=== PATIENT | female | born 1960 | race Caucasian/White ===

== ENCOUNTER 2016-06-10 04:18 | Emergency (ER) | payer OTHER ==
[~2016-06-10] VITALS: Ht 167.6 cm; Wt 95.2 kg
[2016-06-10 05:01] LABS: EOS # 0.1 K/mm3 (0.0-0.50); EOS % 0.9 % (0.0-3.0); LARGE UNSTAINED CELL # 0.1 K/mm3 (0.0-0.4); LARGE UNSTAINED CELL % 0.5 % (0.0-4.0); LYMPH # 0.8 K/mm3 (1.5-4.5); LYMPH % 6.5 % (24.0-44.0); MEAN CORPUSCULAR HEMOGLOBIN 29.5 pg (27.0-33.0); MEAN CORPUSCULAR HGB CONC 33.9 g/dl (32.0-36.5); MEAN CORPUSCULAR VOLUME 86.9 fl (80.0-96.0); MONO # 0.4 K/mm3 (0.0-0.8); MONO % 2.9 % (0.0-5.0); NEUTROPHILS # 10.9 K/mm3 (1.8-7.7); NEUTROPHILS % 89.2 % (36.0-66.0); PLATELET COUNT, AUTOMATED 191 k/mm3 (150-450); RED CELL DISTRIBUTION WIDTH 12.5 % (11.5-14.5); WHITE BLOOD COUNT 12.2 K/mm3 (4.0-10.0)
[2016-06-10] MEDS ORDERED: METOCLOPRAMIDE INJ 10MG/2ML VIAL (J2765) As Ordered ONE (05:01)
[2016-06-10] MEDS ORDERED: HYDROmorphone HCL 1 MG/ML SYRINGE (J1170) As Ordered ONE ×3 (05:02→09:43)
--- NOTE | 2016-06-10 05:10 | REPUSA ---
CLINICAL HISTORY: Abdominal pain. TECHNIQUE: Multiple axial, sagittal and coronal CT images were obtained through the abdomen and pelvi s without administration of oral or IV contrast material. COMMENTS: Surgical changes of the stomach. Mild fullness of the left collecting system. 3 mm calculus in the bladder. Right renal simple cyst. The liver is mildly enlarged without mass or defect. There is no intra or extrahepatic biliary ductal dilatation. The spleen is normal. The gallbladder is within normal limits. The pancreas is of normal contour and attenuation characteristics. There is no evidence of adrenal mass. The kidneys are normal in size, shape and configuration. No renal or ureteral calculi are identified. There is no right hydroureter or hydronephrosis. There is no evidence for appendicitis. There is no bowel wall thickening. No evidence for small or la rge bowel obstruction. There is no evidence of abdominal ascites or lymphadenopathy. There is no evidence of intrinsic or extrinsic bladder mass. There is no pelvic ascites or lymphadeno chase. Prior hysterectomy. Mild diffuse thickening of the wall of the bladder. Images of the lung bases show no evidence of pleural or parenchymal mass. There are no pleural effusi ons. The bony structures are free of lytic or blastic lesions. Multilevel degenerative changes are seen in volving the thoracolumbar spine. Scattered calcifications are seen involving the aorta and major branches compatible with atherosclero sis. IMPRESSION: Suspected recent passage of calculus from the left collecting system into the bladder. This stone is noted in the bladder. Surgical changes of the stomach. Thank you for your kind referral of this patient.
[2016-06-10 05:28] LABS: ALBUMIN 3.7 GM/DL (3.2-5.2); ALBUMIN/GLOBULIN RATIO 1.16 (1.00-1.93); ALKALINE PHOSPHATASE 122 U/L (45-117); ALT/SGPT 170 U/L (12-78); AMYLASE 383 U/L (25-115); ANION GAP 11 MEQ/L (8-16); AST/SGOT 53 U/L (15-37); BILIRUBIN,DIRECT 0.4 MG/DL (0.0-0.2); BILIRUBIN,TOTAL 1.1 MG/DL (0.2-1.0); BLOOD UREA NITROGEN 19 MG/DL (7-18); CALCIUM LEVEL 9.4 MG/DL (8.5-10.1); CARBON DIOXIDE LEVEL 25 MEQ/L (21-32); CHLORIDE LEVEL 108 MEQ/L (98-107); GLOMERULAR FILTRATION RATE > 60.0 (>51); GLUCOSE, FASTING 107 MG/DL (70-105); POTASSIUM SERUM 3.6 MEQ/L (3.5-5.1); SODIUM LEVEL 144 MEQ/L (136-145); TOTAL PROTEIN 6.9 GM/DL (6.4-8.2)
[2016-06-10] MEDS ORDERED: EXCETAB80 PO (06:19)
[2016-06-10] MEDS ORDERED: ROPI1TAB PO (06:19)
[2016-06-10] MEDS ORDERED: OMEP40CA2 PO (06:19)
[2016-06-10] MEDS ORDERED: VITMTA PO (06:19)
[2016-06-10] MEDS ORDERED: ROPI0.5T PO (06:19)
[2016-06-10] MEDS ORDERED: ASPI325T PO (06:19)
[2016-06-10] MEDS ORDERED: KCL 20MEQ IN D5/.45NACL 1000ML As Ordered ONE ×2 (07:16→18:13)
[2016-06-10] MEDS ORDERED: ACETAMINOPHEN 325 MG TAB As Ordered ONE ×2 (13:26→17:46)
[2016-06-10] MEDS ORDERED: rOPINIRole 0.25 MG TAB(REQUIP) PO ONE (16:15)
--- NOTE | 2016-06-10 18:30 | EDDOCDS ---
Nurse's Notes [facility] Name: Laura Bocanegra Age: 55 yrs Sex: Female : 1960 Arrival Date: 06/10/2016 Time: 04:18 Bed OBSERVATION Private MD: Jenifer Sharp A Diagnosis: Acute pancreatitis Presentation: 06/10 04:24 Presenting complaint: Patient states: Thursday I woke up with a bad headache and started js15 vomiting; I also had pain across my back where my kidneys are. Anytime I try to eat I get really bad pain in my stomach. 04:26 Acute neurological deficits are not present. Mechanism of Injury: No Mechanism of js15 Injury. Adult Sepsis Screening: The patient does not have new or worsening altered mentation. Patient's respiratory rate is less than 22. Systolic blood pressure is greater than 100. Patient has a qSOFA score of 0- Negative Sepsis Screen. Suicide/Homicide risk assessment- the patient denies having any suicidal and/or homicidal ideations and does not present with any other emotional, behavioral or mental health complaints. Status: Patient is not a account services specialist or dependent. Transition of care: patient was not received from another setting of care. 04:26 Acuity: ERIKA Level 3 js15 04:26 Method Of Arrival: Wheelchair js15 Triage Assessment: 04:29 General: Appears in no apparent distress, uncomfortable, Behavior is appropriate for js15 age, cooperative. Pain: Location: head, lumbar area, left low back, right low back and abdomen Pain currently is 8 out of 10 on a pain scale. HIV screening NA for this visit Offered previously. Neurological: Level of Consciousness is awake, alert, obeys commands, Oriented to person, place, time. Respiratory: Airway is patent Respiratory effort is even, unlabored, Respiratory pattern is regular, symmetrical. GI: Reports nausea, vomiting. Derm: Skin is pink, warm & dry. Musculoskeletal: Reports pain in back. Historical: - Allergies: No known drug Allergies; - Home Meds: 1. Prilosec 40 mg oral cpDR once daily 2. aspirin 325 mg Oral tab 1 tab once daily 3. ropinirole 1 mg oral tab 1 tab Qam 2 tabs Q pm - PMHx: GERD; restless leg syndrome; - PSHx: gastric sleeve; Hysterectomy; - Social history: Smoking status: Patient states was never smoker of tobacco. No barriers to communication noted, The patient speaks fluent Spanish, Speaks appropriately for age. - Family history: Not pertinent. - : The pt / caregiver states he / she is not on anticoagulants. Home medication list is obtained from the patient. - Exposure Risk Screening:: None identified. Screenin:42 Screening information is obtained from the patient. Fall risk: No risks identified. cf2 Assistance ADL's: requires no assistance with activities of daily living. Abuse/DV Screen: The patient / caregiver reports he/she is: not in a situation that causes fear, pain or injury. Nutritional screening: No deficits noted. Advance Directives: Further advance directive information is declined. home support is adequate. Assessment: 04:42 Adult Sepsis Screening: The patient does not have new or worsening altered mentation. cf2 Patient's respiratory rate is less than 22. Systolic blood pressure is greater than 100. Patient has a qSOFA score of 0- Negative Sepsis Screen. General: Appears uncomfortable, Behavior is appropriate for age, cooperative. Pain: Location: back. Neurological: No deficits noted. EENT: No deficits noted. Cardiovascular: No deficits noted. Respiratory: No deficits noted. GI: No deficits noted. : No deficits noted. Derm: No deficits noted. Musculoskeletal: No deficits noted. Injury Description: No known injury. 06:16 Reassessment: Patient appears in no apparent distress at this time. cf2 07:26 Adult Sepsis Screening: The patient does not have new or worsening altered mentation. mlb1 Patient's respiratory rate is less than 22. Systolic blood pressure is greater than 100. Patient has a qSOFA score of 0- Negative Sepsis Screen. General: Appears in no apparent distress, comfortable, Behavior is appropriate for age, cooperative. Pain: Denies pain. Respiratory: No deficits noted. 08:44 General: Appears in no apparent distress, comfortable, Behavior is appropriate for age, mlb1 cooperative. Pain: Location: low back area Pain currently is 2 out of 10 on a pain scale. Neurological: No deficits noted. Respiratory: No deficits noted. 09:40 General: Appears in no apparent distress, Behavior is appropriate for age, cooperative. mlb1 Pain: Location: lumbar area Pain currently is 6 out of 10 on a pain scale. Neurological: No deficits noted. 10:37 Adult Sepsis Screening: The patient does not have new or worsening altered mentation. mlb1 Patient's respiratory rate is less than 22. Systolic blood pressure is greater than 100. Patient has a qSOFA score of 0- Negative Sepsis Screen. General: Appears in no apparent distress, comfortable, Behavior is appropriate for age, cooperative. Pain: Location: lumbar area Pain currently is 1 out of 10 on a pain scale. Neurological: No deficits noted. Respiratory: No deficits noted. 11:40 General: Appears to be sleeping. Behavior is. Respiratory: Airway is patent Respiratory mlb1 effort is even, unlabored. 12:19 General: Appears in no apparent distress, comfortable, Behavior is appropriate for age, mlb1 cooperative. Pain: Denies pain. Respiratory: No deficits noted. 13:17 General: Appears in no apparent distress, comfortable, Behavior is appropriate for age, mlb1 cooperative. Pain: Location: lumbar area Pain currently is 2 out of 10 on a pain scale. Neurological: No deficits noted. 14:15 General: Appears in no apparent distress, comfortable, Behavior is appropriate for age, mlb1 cooperative. Pain: Denies pain. 15:09 General: Appears in no apparent distress, comfortable, Behavior is appropriate for age, mlb1 cooperative. Pain: Denies pain. Respiratory: No deficits noted. 16:12 General: Appears in no apparent distress, comfortable, Behavior is appropriate for age, mlb1 cooperative. Pain: Denies pain. Neurological: No deficits noted. Respiratory: No deficits noted. 17:11 General: Appears in no apparent distress, comfortable, Behavior is appropriate for age, mlb1 cooperative. Pain: Denies pain. Respiratory: No deficits noted. 17:49 General: Appears in no apparent distress, comfortable, Behavior is cooperative. Pain: mlb1 Location: head Pain currently is 7 out of 10 on a pain scale. Neurological: No deficits noted. 18:25 General: Appears in no apparent distress, comfortable, Behavior is appropriate for age, mlb1 cooperative. Pain: Location: head Pain currently is 5 out of 10 on a pain scale. Neurological: No deficits noted. Respiratory: No deficits noted. Vital Signs: 04:24 BP 116 / 70; Pulse 75; Resp 20; Temp 98.0(TE); Pulse Ox 95% on R/A; Weight 95.25 kg; js15 Height 5 ft. 6 in. (167.64 cm); 07:04 BP 123 / 71; Pulse 80; Resp 16; Temp 98.0; Pulse Ox 100% on R/A; Pain 4/10; cf2 10:37 BP 115 / 70; Pulse 74; Resp 16; Temp 100.3(O); Pulse Ox 93% on R/A; Pain 1/10; mlb1 12:19 Temp 100.4(O); mlb1 13:17 BP 108 / 63; Pulse 82; Resp 16; Temp 100.9(O); Pulse Ox 94% on R/A; Pain 2/10; mlb1 15:10 Temp 99.8(O); mlb1 17:10 BP 125 / 69; Pulse 68; Resp 16; Pulse Ox 96% on R/A; Pain 0/10; mlb1 18:26 BP 153 / 81; Pulse 80; Resp 16; Temp 99.1(O); Pulse Ox 96% on R/A; Pain 5/10; mlb1 04:24 Body Mass Index 33.89 (95.25 kg, 167.64 cm) [facility] Vitals: 04:24 Log In Time: June 10, 2016 at 04:18. [facility] ED Course: 04:19 Patient visited by Osmel Rosales Reg. pm4 04:19 Patient moved to Waiting pm4 04:20 Jenifer Sharp is Private Physician. pm4 04:23 Patient moved to Pre RCE js15 04:26 Triage Initiated js15 04:33 Patient moved to 12 sls1 04:34 Pacheco Burger DO is Attending Physician. cs11 04:34 Patient visited by Pacheco Burger DO. cs11 04:39 Inessa Tabares,RN is Primary Nurse. cf2 04:39 Patient visited by Inessa Tabares,BRYAN. cf2 04:41 Patient visited by Inessa Tabares,BRYAN. cf2 04:42 The patient / caregiver is instructed regarding the plan of care and ED course. Patient cf2 has correct armband on for positive identification. Placed in gown. Bed in low position. Call light in reach. Side rails up X 1. Side rails up X2. Property :Personal belongings accompany Pt. Door closed. Noise minimized. Visitors limited. Lights dimmed. Moved to private room. Verbal reassurance given. Warm blanket given. Pillow given. Head of bed elevated. Diet: Patient is NPO. 04:42 No procedures done that require assistance. cf2 04:55 Lipase Sent. cf2 04:55 Amylase Sent. cf2 04:55 Liver Profile Sent. cf2 04:55 MED Profile Sent. cf2 04:55 CBC with Diff Sent. cf2 04:55 Urine Culture Sent. cf2 04:57 Patient visited by Inessa Tabares RN. cf2 04:59 Patient visited by Inessa Tabares RN. cf2 05:17 Patient visited by Inessa Tabares RN. cf2 05:34 CT ABD & PELVIS: No Contrast Returned. EDMS 05:35 [facility] Payment Agreement was scanned into [employer] and attached to record. hs2 05:55 Patient visited by Inessa Tabares RN. cf2 06:16 Patient visited by Inessa aTbares RN. cf2 06:16 Inserted saline lock: 20 gauge in right antecubital area and blood collected. The cf2 patient tolerated the procedure well. 06:36 Patient moved to OBSERVATION cs11 06:59 Attending Physician role handed off by Pacheco Burger DO sd1 06:59 Ashley Anne MD is Attending Physician. sd1 07:00 Patient visited by Inessa Tabares RN. cf2 07:06 Patient visited by Inessa Tabares RN. cf2 07:27 Patient visited by Bunny Vasquez, BRYAN. mlb1 08:45 Patient visited by Bunny Vasquez, BRYAN. mlb1 09:41 Patient visited by Bunny Vasquez, BRYAN. mlb1 09:55 Urinalysis Sent. mlb1 10:38 Patient visited by Bunny Vasquez, BRYAN. mlb1 12:19 Patient visited by Bunny Vasquez, BRYAN. mlb1 13:17 Patient visited by Bunny Vasquez, BRYAN. mlb1 15:10 Patient visited by Bunny Vasquez, BRYAN. mlb1 16:12 Patient visited by Bunny Vasquez, BRYAN. mlb1 17:11 Patient visited by Bunny Vasquez, BRYAN. mlb1 17:50 Patient visited by Bunny Vasquez, BRYAN. mlb1 Administered Medications: Discontinued: NS 0.9% 1000 ml IV at bolus once Discontinued: Metoclopramide 10 mg IV at 40 mg/hr once over 15 mins 05:05 Drug: NS 0.9% 1000 ml [sodium chloride 0.9 % intravenous solution] Route: IV; Rate: cf2 bolus; Site: left antecubital; 05:05 Drug: Metoclopramide 10 mg [metoclopramide 5 mg/mL injection solution] Route: IV; Rate: cf2 40 mg/hr; Infused Over: 15 mins; Site: left antecubital; 05:05 Drug: Dilaudid - HYDROmorphone 0.5 mg [hydromorphone 1 mg/mL injection syringe (0.5 cf2 mL)] Route: IVP; Site: left antecubital; 07:07 Follow up: Response: No significant change. cf2 06:00 Drug: Dilaudid - HYDROmorphone 0.5 mg [hydromorphone 1 mg/mL injection syringe (0.5 cf2 mL)] Route: IVP; Site: left antecubital; 07:00 Follow up: Response: No Adverse Reaction cf2 06:12 Drug: NS 0.9% 1000 ml [sodium chloride 0.9 % intravenous solution] Route: IV; Rate: cf2 bolus; Site: left antecubital; 07:00 Follow up: Response: No Adverse Reaction cf2 08:44 Drug: D5-1/2 NS with KCl 1000 ml [potassium chloride 20 mEq/L in dextrose 5 %-0.45 % mlb1 sodium chloride IV] {Co-Signature: hs1 (Lulu Arnold RN).} Route: IV; Rate: 100 mL/hr; Site: right antecubital; 18:18 Follow up: IV Status: Completed infusion mlb1 09:47 Drug: Dilaudid - HYDROmorphone 0.5 mg [hydromorphone 1 mg/mL injection syringe (0.5 mlb1 mL)] Route: IVP; Site: right antecubital; 10:37 Follow up: BP 115 / 70; Pulse 74 bpm; Resp 16 bpm; Temp 100.3 Oral; Pulse Ox 93% RA; mlb1 Pain 1/10 Adult; Response: Pain is decreased 13:29 Drug: Acetaminophen 650 mg [acetaminophen 325 mg tablet (2 tabs)] Route: PO; mlb1 15:10 Follow up: Temp 99.8 Oral; Response: Temperature is decreased mlb1 16:40 Drug: Requip 0.5 mg Route: PO; mlb1 17:49 Drug: Acetaminophen 650 mg [acetaminophen 325 mg tablet (2 tabs)] Route: PO; mlb1 18:15 Drug: D5-1/2 NS with KCl 1000 ml [potassium chloride 20 mEq/L in dextrose 5 %-0.45 % mlb1 sodium chloride IV] {Co-Signature: ck1 (Shira Santiago RN).} Route: IV; Rate: 100 mL/hr; Site: right antecubital; Order Results: Lab Order: Urinalysis; SPEC'M 06/10/16 09:53 Test: APPEARANCE, URINE; Value: HAZY; Range: CLEAR; Status: F Test: COLOR, URINE; Value: YELLOW; Range: YELLOW; Status: F Test: PH,URINE; Value: 5.0; Range: 5.0-9.0; Units: UNITS; Status: F Test: SPECIFIC GRAVITY URINE AUTO; Value: 1.024; Range: 1.002-1.035; Status: F Test: PROTEIN, URINE AUTO; Value: 1+; Range: NEGATIVE; Abnormal: Above high normal; Units: mg/dL; Status: F Test: GLUCOSE, URINE (UA) AUTO; Value: NEGATIVE; Range: NEGATIVE; Units: mg/dL; Status: F Test: KETONE, URINE AUTO; Value: 2+; Range: NEGATIVE; Abnormal: Above high normal; Units: mg/dL; Status: F Test: UROBILINOGEN, URINE AUTO; Value: 2.0; Range: 0.0-2.0; Abnormal: Above high normal; Units: mg/dL; Status: F Test: BILIRUBIN, URINE AUTO; Value: NEGATIVE; Range: NEGATIVE; Status: F Test: NITRITE, URINE AUTO; Value: NEGATIVE; Range: NEGATIVE; Status: F Test: LEUKOCYTE ESTERASE, URINE AUTO; Value: NEGATIVE; Range: NEGATIVE; Status: F Test: BLOOD, URINE BLOOD; Value: 2+; Range: NEGATIVE; Abnormal: Above high normal; Status: F Test: WBC, URINE AUTO; Value: 3; Range: 0-3; Units: /HPF; Status: F Test: RBC, URINE AUTO; Value: 3; Range: 0-3; Units: /HPF; Status: F Test: BACTERIA, URINE AUTO; Value: 1+; Range: NEGATIVE; Abnormal: Above high normal; Status: F Test: SQUAMOUS EPITHELIAL CELL UR AU; Value: 1; Range: 0-6; Units: /HPF; Status: F Test: MUCUS, URINE; Value: SMALL; Range: NEGATIVE; Status: F Test: HYALINE CAST, URINE AUTO; Value: 0; Range: 0-1; Units: /LPF; Status: F Lab Order: CBC with Diff; SPEC'M 06/10/16 04:51 Test: WHITE BLOOD COUNT; Value: 12.2; Range: 4.0-10.0; Abnormal: Above high normal; Units: K/mm3; Status: F Test: RED BLOOD COUNT; Value: 5.24; Range: 4.00-5.40; Units: M/mm3; Status: F Test: HEMOGLOBIN; Value: 15.4; Range: 12.0-16.0; Units: g/dl; Status: F Test: HEMATOCRIT; Value: 45.5; Range: 36.0-47.0; Units: %; Status: F Test: MEAN CORPUSCULAR VOLUME; Value: 86.9; Range: 80.0-96.0; Units: fl; Status: F Test: MEAN CORPUSCULAR HEMOGLOBIN; Value: 29.5; Range: 27.0-33.0; Units: pg; Status: F Test: MEAN CORPUSCULAR HGB CONC; Value: 33.9; Range: 32.0-36.5; Units: g/dl; Status: F Test: RED CELL DISTRIBUTION WIDTH; Value: 12.5; Range: 11.5-14.5; Units: %; Status: F Test: PLATELET COUNT, AUTOMATED; Value: 191; Range: 150-450; Units: k/mm3; Status: F Test: NEUTROPHILS %; Value: 89.2; Range: 36.0-66.0; Abnormal: Above high normal; Units: %; Status: F Test: LYMPH %; Value: 6.5; Range: 24.0-44.0; Abnormal: Below low normal; Units: %; Status: F Test: MONO %; Value: 2.9; Range: 0.0-5.0; Units: %; Status: F Test: EOS %; Value: 0.9; Range: 0.0-3.0; Units: %; Status: F Test: BASO %; Value: 0.0; Range: 0.0-1.0; Units: %; Status: F Test: LARGE UNSTAINED CELL %; Value: 0.5; Range: 0.0-4.0; Units: %; Status: F Test: NEUTROPHILS #; Value: 10.9; Range: 1.8-7.7; Abnormal: Above high normal; Units: K/mm3; Status: F Test: LYMPH #; Value: 0.8; Range: 1.5-4.5; Abnormal: Below low normal; Units: K/mm3; Status: F Test: MONO #; Value: 0.4; Range: 0.0-0.8; Units: K/mm3; Status: F Test: EOS #; Value: 0.1; Range: 0.0-0.50; Units: K/mm3; Status: F Test: BASO #; Value: 0.0; Range: 0.0-0.2; Units: K/mm3; Status: F Test: LARGE UNSTAINED CELL #; Value: 0.1; Range: 0.0-0.4; Units: K/mm3; Status: F Lab Order: MED Profile; [facility] 06/10/16 04:51 Test: GLUCOSE, FASTING; Value: 107; Range: 70-105; Abnormal: Above high normal; Units: MG/DL; Status: F Test: BLOOD UREA NITROGEN; Value: 19; Range: 7-18; Abnormal: Above high normal; Units: MG/DL; Status: F Test: CREATININE FOR GFR; Value: 0.70; Range: 0.55-1.02; Units: MG/DL; Status: F Test: GLOMERULAR FILTRATION RATE; Value: > 60.0; Range: >51; Status: F Test: SODIUM LEVEL; Value: 144; Range: 136-145; Units: MEQ/L; Status: F Test: POTASSIUM SERUM; Value: 3.6; Range: 3.5-5.1; Units: MEQ/L; Status: F Test: CHLORIDE LEVEL; Value: 108; Range: 98-107; Abnormal: Above high normal; Units: MEQ/L; Status: F Test: CARBON DIOXIDE LEVEL; Value: 25; Range: 21-32; Units: MEQ/L; Status: F Test: ANION GAP; Value: 11; Range: 8-16; Units: MEQ/L; Status: F Test: CALCIUM LEVEL; Value: 9.4; Range: 8.5-10.1; Units: MG/DL; Status: F Test Note: ; Units are mL/min/1.73 m2 Chronic Kidney Disease Staging per NKF: Stage I & II GFR >=60 Normal to Mildly Decreased Stage III GFR 30-59 Moderately Decreased Stage IV GFR 15-29 Severely Decreased Stage V GFR <15 Very Little GFR Left ESRD GFR <15 on DOCUMENT REVIEW SPECIALIST Lab Order: Liver Profile; SPEC06/10/16 04:51 Test: AST/SGOT; Value: 53; Range: 15-37; Abnormal: Above high normal; Units: U/L; Status: F Test: ALT/SGPT; Value: 170; Range: 12-78; Abnormal: Above high normal; Units: U/L; Status: F Test: ALKALINE PHOSPHATASE; Value: 122; Range: 45-117; Abnormal: Above high normal; Units: U/L; Status: F Test: BILIRUBIN,TOTAL; Value: 1.1; Range: 0.2-1.0; Abnormal: Above high normal; Units: MG/DL; Status: F Test: BILIRUBIN,DIRECT; Value: 0.4; Range: 0.0-0.2; Abnormal: Above high normal; Units: MG/DL; Status: F Test: TOTAL PROTEIN; Value: 6.9; Range: 6.4-8.2; Units: GM/DL; Status: F Test: ALBUMIN; Value: 3.7; Range: 3.2-5.2; Units: GM/DL; Status: F Test: ALBUMIN/GLOBULIN RATIO; Value: 1.16; Range: 1.00-1.93; Status: F Lab Order: Amylase; 06/10/16 04:51 Test: AMYLASE; Value: 383; Range: 25-115; Abnormal: Above high normal; Units: U/L; Status: F Lab Order: Lipase; 06/10/16 04:51 Test: LIPASE; Value: 1000; Range: 73-393; Abnormal: Above high normal; Units: U/L; Status: F Radiology Order: CT ABD & PELVIS: No Contrast Test: CT ABD & PELVIS: No Contrast REASON FOR EXAMINATION: Renal colic; ; CLINICAL HISTORY: Abdominal pain.; TECHNIQUE: Multiple axial, sagittal and coronal CT images were obtained through the abdomen and pelvi; s without administration of oral or IV contrast material.; COMMENTS:; Surgical changes of the stomach.; Mild fullness of the left collecting system.; 3 mm calculus in the bladder.; Right renal simple cyst.; The liver is mildly enlarged without mass or defect. There is no intra or extrahepatic biliary ductal; dilatation. The spleen is normal. The gallbladder is within normal limits. The pancreas is of normal; contour and attenuation characteristics. There is no evidence of adrenal mass.; The kidneys are normal in size, shape and configuration. No renal or ureteral calculi are identified.; There is no right hydroureter or hydronephrosis.; There is no evidence for appendicitis. There is no bowel wall thickening. No evidence for small or la; rge bowel obstruction. There is no evidence of abdominal ascites or lymphadenopathy.; There is no evidence of intrinsic or extrinsic bladder mass. There is no pelvic ascites or lymphadeno; chase.; Prior hysterectomy. Mild diffuse thickening of the wall of the bladder.; Images of the lung bases show no evidence of pleural or parenchymal mass. There are no pleural effusi; ons.; The bony structures are free of lytic or blastic lesions. Multilevel degenerative changes are seen in; volving the thoracolumbar spine.; Scattered calcifications are seen involving the aorta and major branches compatible with atherosclero; sis.; IMPRESSION:; Suspected recent passage of calculus from the left collecting system into the bladder. This stone is; noted in the bladder.; Surgical changes of the stomach.; Thank you for your kind referral of this patient.; ; Outcome: 06:16 CT Study completed. cf2 09:54 ER care complete, transfer ordered by Provider. sd1 16:26 ER care complete, transfer ordered by Provider. sd1 18:03 [facility] to accompanying personnel [email or web address] Jeff Seaman; Esther Mora. 18:26 Discharge Assessment: Patient awake, alert and oriented x 3. No cognitive and/or mlb1 functional deficits noted. Patient verbalized understanding of disposition instructions. patient administered narcotics - yes. Patient was admitted to the hospital or transferred to another facility. The following High Risk Discharge criteria are identified: None. Transferred to [facility]. Transfer form completed. x-rays sent w/ patient. 18:27 Condition: stable. b1 18:29 Patient left the ED. [facility] Signatures: Dispatcher [employer] EDGA Ashley Anne MD MD sd1 Bunny Vasquez RN RN mlb1 Shira Santiago,RN RN ck1 Clotilde Bajwa RN RN sls1 Pacheco Burger, DO DO cs11 Angelique HernandezRN RN js15 Beatriz Huynh, Reg Reg hs2 Inessa Tabares,RN RN cf2 Osmel Rosales, Reg Reg pm4 Lulu Arnold RN hs1 Shira Santiago RN ck1 Corrections: (The following items were deleted from the chart) 15:54 04:29 Home Meds: ropinirole oral oral three times a day; js15 [facility] 16:12 15:54 Home Meds: ropinirole oral 10 mg oral 1 tab Q am 2 tabs Q pm; b1 [facility] MTDD
--- NOTE | 2016-06-10 18:30 | EDDOCDS ---
Physician Documentation [facility] Name: Laura Bocanegra Age: 55 yrs Sex: Female : 1960 Arrival Date: 06/10/2016 Time: 04:18 Bed OBSERVATION Private MD: Jenifer Sharp A Disposition: 06/10/16 16:26 Transfer ordered to Other. Diagnosis is Acute pancreatitis. - Reason for transfer: Higher level of care. - Accepting physician is Dr. Lawrence. - Condition is Stable. - Problem is new. - Symptoms are unchanged. Historical: - Allergies: No known drug Allergies; - Home Meds: 1. Prilosec 40 mg oral cpDR once daily 2. aspirin 325 mg Oral tab 1 tab once daily 3. ropinirole 1 mg oral tab 1 tab Qam 2 tabs Q pm - PMHx: GERD; restless leg syndrome; - PSHx: gastric sleeve; Hysterectomy; - Social history: Smoking status: Patient states was never smoker of tobacco. No barriers to communication noted, The patient speaks fluent Indonesian, Speaks appropriately for age. - Family history: Not pertinent. - : The pt / caregiver states he / she is not on anticoagulants. Home medication list is obtained from the patient. - Exposure Risk Screening:: None identified. Vital Signs: 06/10 04:24 BP 116 / 70; Pulse 75; Resp 20; Temp 98.0(TE); Pulse Ox 95% on R/A; Weight 95.25 kg / js15 209.99 lbs; Height 5 ft. 6 in. (167.64 cm); 07:04 BP 123 / 71; Pulse 80; Resp 16; Temp 98.0; Pulse Ox 100% on R/A; Pain 4/10; cf2 10:37 BP 115 / 70; Pulse 74; Resp 16; Temp 100.3(O); Pulse Ox 93% on R/A; Pain 1/10; mlb1 12:19 Temp 100.4(O); mlb1 13:17 BP 108 / 63; Pulse 82; Resp 16; Temp 100.9(O); Pulse Ox 94% on R/A; Pain 2/10; mlb1 15:10 Temp 99.8(O); mlb1 17:10 BP 125 / 69; Pulse 68; Resp 16; Pulse Ox 96% on R/A; Pain 0/10; mlb1 18:26 BP 153 / 81; Pulse 80; Resp 16; Temp 99.1(O); Pulse Ox 96% on R/A; Pain 5/10; mlb1 04:24 Body Mass Index 33.89 (95.25 kg, 167.64 cm) js15 MDM: 04:36 Urinalysis Ordered. EDMS 04:36 Urine Culture Ordered. EDMS 04:37 CBC with Diff Ordered. EDMS 04:37 MED Profile Ordered. EDMS 04:37 Liver Profile Ordered. EDMS 04:37 Amylase Ordered. EDMS 04:37 Lipase Ordered. EDMS 04:37 CT ABD & PELVIS: No Contrast Ordered. EDMS 04:56 NS 0.9% 1000 ml IV at bolus once ordered. cs11 04:59 Metoclopramide 10 mg IV at 40 mg/hr once over 15 mins ordered. cs11 04:59 Dilaudid - HYDROmorphone 0.5 mg IVP once ordered. cs11 05:20 CBC with Diff Reviewed. cs11 05:34 Financial registration complete. hs2 05:35 [facility] Payment Agreement was scanned into [employer] and attached to record. hs2 05:41 MED Profile Reviewed. cs11 05:41 Liver Profile Reviewed. cs11 05:41 Amylase Reviewed. cs11 05:41 Lipase Reviewed. cs11 05:41 CT ABD & PELVIS: No Contrast Reviewed. cs11 05:46 BED REQUEST+ADM ordered. EDMS 05:53 Dilaudid - HYDROmorphone 0.5 mg IVP once ordered. cs11 06:11 NS 0.9% 1000 ml IV at bolus once ordered. cs11 07:12 D5-1/2 NS with KCl 20 mEq/L 1000 ml IV at 100 mL/hr once ordered. sd1 09:42 Dilaudid - HYDROmorphone 0.5 mg IVP once ordered. sd1 13:23 Acetaminophen Tablet 650 mg PO once ordered. sd1 14:54 Urinalysis Reviewed. sd1 15:21 CBC with Diff Ordered. EDMS 15:22 MED Profile Ordered. EDMS 15:22 Liver Profile Ordered. EDMS 15:22 Lipase Ordered. EDMS 16:04 Requip 0.5 mg PO once ordered. sd1 17:39 Acetaminophen Tablet 650 mg PO once ordered. sd1 18:12 D5-1/2 NS with KCl 20 mEq/L 1000 ml IV at 100 mL/hr once ordered. mlb1 Administered Medications: Discontinued: NS 0.9% 1000 ml IV at bolus once Discontinued: Metoclopramide 10 mg IV at 40 mg/hr once over 15 mins 05:05 Drug: NS 0.9% 1000 ml [sodium chloride 0.9 % intravenous solution] Route: IV; Rate: cf2 bolus; Site: left antecubital; 05:05 Drug: Metoclopramide 10 mg [metoclopramide 5 mg/mL injection solution] Route: IV; Rate: cf2 40 mg/hr; Infused Over: 15 mins; Site: left antecubital; 05:05 Drug: Dilaudid - HYDROmorphone 0.5 mg [hydromorphone 1 mg/mL injection syringe (0.5 cf2 mL)] Route: IVP; Site: left antecubital; 07:07 Follow up: Response: No significant change. cf2 06:00 Drug: Dilaudid - HYDROmorphone 0.5 mg [hydromorphone 1 mg/mL injection syringe (0.5 cf2 mL)] Route: IVP; Site: left antecubital; 07:00 Follow up: Response: No Adverse Reaction cf2 06:12 Drug: NS 0.9% 1000 ml [sodium chloride 0.9 % intravenous solution] Route: IV; Rate: cf2 bolus; Site: left antecubital; 07:00 Follow up: Response: No Adverse Reaction cf2 08:44 Drug: D5-1/2 NS with KCl 1000 ml [potassium chloride 20 mEq/L in dextrose 5 %-0.45 % mlb1 sodium chloride IV] {Co-Signature: hs1 (Lulu Arnold RN).} Route: IV; Rate: 100 mL/hr; Site: right antecubital; 18:18 Follow up: IV Status: Completed infusion mlb1 09:47 Drug: Dilaudid - HYDROmorphone 0.5 mg [hydromorphone 1 mg/mL injection syringe (0.5 mlb1 mL)] Route: IVP; Site: right antecubital; 10:37 Follow up: BP 115 / 70; Pulse 74 bpm; Resp 16 bpm; Temp 100.3 Oral; Pulse Ox 93% RA; mlb1 Pain 05/27 Adult; Response: Pain is decreased 13:29 Drug: Acetaminophen 650 mg [acetaminophen 325 mg tablet (2 tabs)] Route: PO; b1 15:10 Follow up: Temp 99.8 Oral; Response: Temperature is decreased mlb1 16:40 Drug: Requip 0.5 mg Route: PO; mlb1 17:49 Drug: Acetaminophen 650 mg [acetaminophen 325 mg tablet (2 tabs)] Route: PO; mlb1 18:15 Drug: D5-1/2 NS with KCl 1000 ml [potassium chloride 20 mEq/L in dextrose 5 %-0.45 % mlb1 sodium chloride IV] {Co-Signature: ck1 (Shira Santiago RN).} Route: IV; Rate: 100 mL/hr; Site: right antecubital; Signatures: Dispatcher [employer] EDAshley Garcia MD MD sd1 Bunny Vasquez RN RN mlb1 Pacheco Burger DO DO cs11 Angelique HernandezRN RN js15 Beatriz Huynh, Reg Reg hs2 Inessa Tabares RN RN cf2 Lulu Arnold RN hs1 Shira Santiago RN ck1 The chart was reviewed and I authenticate all verbal orders and agree with the evaluation and treatment provided.Corrections: (The following items were deleted from the chart) 15:54 04:29 Home Meds: ropinirole oral oral three times a day; js15 mlb1 16:12 15:54 Home Meds: ropinirole oral 10 mg oral 1 tab Q am 2 tabs Q pm; mlb1 mlb1 Attachments: 05:35 [facility] Payment Agreement hs2 MTDD
--- NOTE | 2016-06-12 19:29 | EDDOCDS ---
Physician Documentation [facility] Name: Laura Bocanegra Age: 55 yrs Sex: Female : 1960 Arrival Date: 06/10/2016 Time: 04:18 Bed OBSERVATION Private MD: Jenifer Sharp A Disposition: 06/10/16 16:26 Transfer ordered to Other. Diagnosis is Acute pancreatitis. - Reason for transfer: Higher level of care. - Accepting physician is Dr. Lawrence. - Condition is Stable. - Problem is new. - Symptoms are unchanged. Historical: - Allergies: No known drug Allergies; - Home Meds: 1. Prilosec 40 mg oral cpDR once daily 2. aspirin 325 mg Oral tab 1 tab once daily 3. ropinirole 1 mg oral tab 1 tab Qam 2 tabs Q pm - PMHx: GERD; restless leg syndrome; - PSHx: gastric sleeve; Hysterectomy; - Social history: Smoking status: Patient states was never smoker of tobacco. No barriers to communication noted, The patient speaks fluent Uzbek, Speaks appropriately for age. - Family history: Not pertinent. - : The pt / caregiver states he / she is not on anticoagulants. Home medication list is obtained from the patient. - Exposure Risk Screening:: None identified. Vital Signs: 06/10 04:24 BP 116 / 70; Pulse 75; Resp 20; Temp 98.0(TE); Pulse Ox 95% on R/A; Weight 95.25 kg / js15 209.99 lbs; Height 5 ft. 6 in. (167.64 cm); 07:04 BP 123 / 71; Pulse 80; Resp 16; Temp 98.0; Pulse Ox 100% on R/A; Pain 4/10; cf2 10:37 BP 115 / 70; Pulse 74; Resp 16; Temp 100.3(O); Pulse Ox 93% on R/A; Pain 1/10; mlb1 12:19 Temp 100.4(O); mlb1 13:17 BP 108 / 63; Pulse 82; Resp 16; Temp 100.9(O); Pulse Ox 94% on R/A; Pain 2/10; mlb1 15:10 Temp 99.8(O); mlb1 17:10 BP 125 / 69; Pulse 68; Resp 16; Pulse Ox 96% on R/A; Pain 0/10; mlb1 18:26 BP 153 / 81; Pulse 80; Resp 16; Temp 99.1(O); Pulse Ox 96% on R/A; Pain 5/10; mlb1 04:24 Body Mass Index 33.89 (95.25 kg, 167.64 cm) js15 MDM: 04:36 Urinalysis Ordered. EDMS 04:36 Urine Culture Ordered. EDMS 04:37 CBC with Diff Ordered. EDMS 04:37 MED Profile Ordered. EDMS 04:37 Liver Profile Ordered. EDMS 04:37 Amylase Ordered. EDMS 04:37 Lipase Ordered. EDMS 04:37 CT ABD & PELVIS: No Contrast Ordered. EDMS 04:56 NS 0.9% 1000 ml IV at bolus once ordered. cs11 04:59 Metoclopramide 10 mg IV at 40 mg/hr once over 15 mins ordered. cs11 04:59 Dilaudid - HYDROmorphone 0.5 mg IVP once ordered. cs11 05:20 CBC with Diff Reviewed. cs11 05:34 Financial registration complete. hs2 05:35 [facility] Payment Agreement was scanned into [employer] and attached to record. hs2 05:41 MED Profile Reviewed. cs11 05:41 Liver Profile Reviewed. cs11 05:41 Amylase Reviewed. cs11 05:41 Lipase Reviewed. cs11 05:41 CT ABD & PELVIS: No Contrast Reviewed. cs11 05:46 BED REQUEST+ADM ordered. EDMS 05:53 Dilaudid - HYDROmorphone 0.5 mg IVP once ordered. cs11 06:11 NS 0.9% 1000 ml IV at bolus once ordered. cs11 07:12 D5-1/2 NS with KCl 20 mEq/L 1000 ml IV at 100 mL/hr once ordered. sd1 09:42 Dilaudid - HYDROmorphone 0.5 mg IVP once ordered. sd1 13:23 Acetaminophen Tablet 650 mg PO once ordered. sd1 14:54 Urinalysis Reviewed. sd1 15:21 CBC with Diff Ordered. EDMS 15:22 MED Profile Ordered. EDMS 15:22 Liver Profile Ordered. EDMS 15:22 Lipase Ordered. EDMS 16:04 Requip 0.5 mg PO once ordered. sd1 17:39 Acetaminophen Tablet 650 mg PO once ordered. sd1 18:12 D5-1/2 NS with KCl 20 mEq/L 1000 ml IV at 100 mL/hr once ordered. mlb1 06/11 09:59 T-Sheet-- Draft Copy was scanned into [employer] and attached to record. gb Administered Medications: Discontinued: NS 0.9% 1000 ml IV at bolus once Discontinued: Metoclopramide 10 mg IV at 40 mg/hr once over 15 mins 06/10 05:05 Drug: NS 0.9% 1000 ml [sodium chloride 0.9 % intravenous solution] Route: IV; Rate: cf2 bolus; Site: left antecubital; 05:05 Drug: Metoclopramide 10 mg [metoclopramide 5 mg/mL injection solution] Route: IV; Rate: cf2 40 mg/hr; Infused Over: 15 mins; Site: left antecubital; 05:05 Drug: Dilaudid - HYDROmorphone 0.5 mg [hydromorphone 1 mg/mL injection syringe (0.5 cf2 mL)] Route: IVP; Site: left antecubital; 07:07 Follow up: Response: No significant change. cf2 06:00 Drug: Dilaudid - HYDROmorphone 0.5 mg [hydromorphone 1 mg/mL injection syringe (0.5 cf2 mL)] Route: IVP; Site: left antecubital; 07:00 Follow up: Response: No Adverse Reaction cf2 06:12 Drug: NS 0.9% 1000 ml [sodium chloride 0.9 % intravenous solution] Route: IV; Rate: cf2 bolus; Site: left antecubital; 07:00 Follow up: Response: No Adverse Reaction cf2 08:44 Drug: D5-1/2 NS with KCl 1000 ml [potassium chloride 20 mEq/L in dextrose 5 %-0.45 % mlb1 sodium chloride IV] {Co-Signature: hs1 (Lulu Arnold RN).} Route: IV; Rate: 100 mL/hr; Site: right antecubital; 18:18 Follow up: IV Status: Completed infusion mlb1 09:47 Drug: Dilaudid - HYDROmorphone 0.5 mg [hydromorphone 1 mg/mL injection syringe (0.5 mlb1 mL)] Route: IVP; Site: right antecubital; 10:37 Follow up: BP 115 / 70; Pulse 74 bpm; Resp 16 bpm; Temp 100.3 Oral; Pulse Ox 93% RA; mlb1 Pain /10 Adult; Response: Pain is decreased 13:29 Drug: Acetaminophen 650 mg [acetaminophen 325 mg tablet (2 tabs)] Route: PO; mlb1 15:10 Follow up: Temp 99.8 Oral; Response: Temperature is decreased mlb1 16:40 Drug: Requip 0.5 mg Route: PO; mlb1 17:49 Drug: Acetaminophen 650 mg [acetaminophen 325 mg tablet (2 tabs)] Route: PO; mlb1 18:15 Drug: D5-1/2 NS with KCl 1000 ml [potassium chloride 20 mEq/L in dextrose 5 %-0.45 % mlb1 sodium chloride IV] {Co-Signature: ck1 (Shira Santiago RN).} Route: IV; Rate: 100 mL/hr; Site: right antecubital; Signatures: Dispatcher [employer] EDAshley Garcia MD MD sd1 Briana Chua, Reg Reg gb Bunny Vasquez RN RN mlb1 Pacheco Burger, DO cs11 Angelique HernandezRN RN js15 Beatriz Huynh, Reg Reg hs2 Inessa TabaresRN RN cf2 Lulu Arnold RN hs1 Shira Santiago RN ck1 The chart was reviewed and I authenticate all verbal orders and agree with the evaluation and treatment provided.Corrections: (The following items were deleted from the chart) 15:54 04:29 Home Meds: ropinirole oral oral three times a day; js15 [facility] 16:12 15:54 Home Meds: ropinirole oral 10 mg oral 1 tab Q am 2 tabs Q pm; mlb1 mlb1 Attachments: 05:35 [facility] Payment Agreement hs2 06/11 09:59 T-Sheet-- Draft Copy gb Chart Complete MTDD
--- NOTE | 2016-06-12 19:29 | EDDOCDS ---
Nurse's Notes [facility] Name: Laura Bocanegra Age: 55 yrs Sex: Female : 1960 Arrival Date: 06/10/2016 Time: 04:18 Bed OBSERVATION Private MD: Jenifer Sharp A Diagnosis: Acute pancreatitis Presentation: 06/10 04:24 Presenting complaint: Patient states: Thursday I woke up with a bad headache and started js15 vomiting; I also had pain across my back where my kidneys are. Anytime I try to eat I get really bad pain in my stomach. 04:26 Acute neurological deficits are not present. Mechanism of Injury: No Mechanism of js15 Injury. Adult Sepsis Screening: The patient does not have new or worsening altered mentation. Patient's respiratory rate is less than 22. Systolic blood pressure is greater than 100. Patient has a qSOFA score of 0- Negative Sepsis Screen. Suicide/Homicide risk assessment- the patient denies having any suicidal and/or homicidal ideations and does not present with any other emotional, behavioral or mental health complaints. Status: Patient is not a b2b managed service sales exec or dependent. Transition of care: patient was not received from another setting of care. 04:26 Acuity: ERIKA Level 3 js15 04:26 Method Of Arrival: Wheelchair js15 Triage Assessment: 04:29 General: Appears in no apparent distress, uncomfortable, Behavior is appropriate for js15 age, cooperative. Pain: Location: head, lumbar area, left low back, right low back and abdomen Pain currently is 8 out of 10 on a pain scale. HIV screening NA for this visit Offered previously. Neurological: Level of Consciousness is awake, alert, obeys commands, Oriented to person, place, time. Respiratory: Airway is patent Respiratory effort is even, unlabored, Respiratory pattern is regular, symmetrical. GI: Reports nausea, vomiting. Derm: Skin is pink, warm & dry. Musculoskeletal: Reports pain in back. Historical: - Allergies: No known drug Allergies; - Home Meds: 1. Prilosec 40 mg oral cpDR once daily 2. aspirin 325 mg Oral tab 1 tab once daily 3. ropinirole 1 mg oral tab 1 tab Qam 2 tabs Q pm - PMHx: GERD; restless leg syndrome; - PSHx: gastric sleeve; Hysterectomy; - Social history: Smoking status: Patient states was never smoker of tobacco. No barriers to communication noted, The patient speaks fluent Occitan, Speaks appropriately for age. - Family history: Not pertinent. - : The pt / caregiver states he / she is not on anticoagulants. Home medication list is obtained from the patient. - Exposure Risk Screening:: None identified. Screenin:42 Screening information is obtained from the patient. Fall risk: No risks identified. cf2 Assistance ADL's: requires no assistance with activities of daily living. Abuse/DV Screen: The patient / caregiver reports he/she is: not in a situation that causes fear, pain or injury. Nutritional screening: No deficits noted. Advance Directives: Further advance directive information is declined. home support is adequate. Assessment: 04:42 Adult Sepsis Screening: The patient does not have new or worsening altered mentation. cf2 Patient's respiratory rate is less than 22. Systolic blood pressure is greater than 100. Patient has a qSOFA score of 0- Negative Sepsis Screen. General: Appears uncomfortable, Behavior is appropriate for age, cooperative. Pain: Location: back. Neurological: No deficits noted. EENT: No deficits noted. Cardiovascular: No deficits noted. Respiratory: No deficits noted. GI: No deficits noted. : No deficits noted. Derm: No deficits noted. Musculoskeletal: No deficits noted. Injury Description: No known injury. 06:16 Reassessment: Patient appears in no apparent distress at this time. cf2 07:26 Adult Sepsis Screening: The patient does not have new or worsening altered mentation. mlb1 Patient's respiratory rate is less than 22. Systolic blood pressure is greater than 100. Patient has a qSOFA score of 0- Negative Sepsis Screen. General: Appears in no apparent distress, comfortable, Behavior is appropriate for age, cooperative. Pain: Denies pain. Respiratory: No deficits noted. 08:44 General: Appears in no apparent distress, comfortable, Behavior is appropriate for age, mlb1 cooperative. Pain: Location: low back area Pain currently is 2 out of 10 on a pain scale. Neurological: No deficits noted. Respiratory: No deficits noted. 09:40 General: Appears in no apparent distress, Behavior is appropriate for age, cooperative. mlb1 Pain: Location: lumbar area Pain currently is 6 out of 10 on a pain scale. Neurological: No deficits noted. 10:37 Adult Sepsis Screening: The patient does not have new or worsening altered mentation. mlb1 Patient's respiratory rate is less than 22. Systolic blood pressure is greater than 100. Patient has a qSOFA score of 0- Negative Sepsis Screen. General: Appears in no apparent distress, comfortable, Behavior is appropriate for age, cooperative. Pain: Location: lumbar area Pain currently is 1 out of 10 on a pain scale. Neurological: No deficits noted. Respiratory: No deficits noted. 11:40 General: Appears to be sleeping. Behavior is. Respiratory: Airway is patent Respiratory mlb1 effort is even, unlabored. 12:19 General: Appears in no apparent distress, comfortable, Behavior is appropriate for age, mlb1 cooperative. Pain: Denies pain. Respiratory: No deficits noted. 13:17 General: Appears in no apparent distress, comfortable, Behavior is appropriate for age, mlb1 cooperative. Pain: Location: lumbar area Pain currently is 2 out of 10 on a pain scale. Neurological: No deficits noted. 14:15 General: Appears in no apparent distress, comfortable, Behavior is appropriate for age, mlb1 cooperative. Pain: Denies pain. 15:09 General: Appears in no apparent distress, comfortable, Behavior is appropriate for age, mlb1 cooperative. Pain: Denies pain. Respiratory: No deficits noted. 16:12 General: Appears in no apparent distress, comfortable, Behavior is appropriate for age, mlb1 cooperative. Pain: Denies pain. Neurological: No deficits noted. Respiratory: No deficits noted. 17:11 General: Appears in no apparent distress, comfortable, Behavior is appropriate for age, mlb1 cooperative. Pain: Denies pain. Respiratory: No deficits noted. 17:49 General: Appears in no apparent distress, comfortable, Behavior is cooperative. Pain: mlb1 Location: head Pain currently is 7 out of 10 on a pain scale. Neurological: No deficits noted. 18:25 General: Appears in no apparent distress, comfortable, Behavior is appropriate for age, mlb1 cooperative. Pain: Location: head Pain currently is 5 out of 10 on a pain scale. Neurological: No deficits noted. Respiratory: No deficits noted. Vital Signs: 04:24 BP 116 / 70; Pulse 75; Resp 20; Temp 98.0(TE); Pulse Ox 95% on R/A; Weight 95.25 kg; js15 Height 5 ft. 6 in. (167.64 cm); 07:04 BP 123 / 71; Pulse 80; Resp 16; Temp 98.0; Pulse Ox 100% on R/A; Pain 4/10; cf2 10:37 BP 115 / 70; Pulse 74; Resp 16; Temp 100.3(O); Pulse Ox 93% on R/A; Pain 1/10; mlb1 12:19 Temp 100.4(O); mlb1 13:17 BP 108 / 63; Pulse 82; Resp 16; Temp 100.9(O); Pulse Ox 94% on R/A; Pain 2/10; mlb1 15:10 Temp 99.8(O); mlb1 17:10 BP 125 / 69; Pulse 68; Resp 16; Pulse Ox 96% on R/A; Pain 0/10; mlb1 18:26 BP 153 / 81; Pulse 80; Resp 16; Temp 99.1(O); Pulse Ox 96% on R/A; Pain 5/10; mlb1 04:24 Body Mass Index 33.89 (95.25 kg, 167.64 cm) [facility] Vitals: 04:24 Log In Time: June 10, 2016 at 04:18. [facility] ED Course: 04:19 Patient visited by Osmel Rosales Reg. pm4 04:19 Patient moved to Waiting pm4 04:20 Jenifer Sharp is Private Physician. pm4 04:23 Patient moved to Pre RCE js15 04:26 Triage Initiated js15 04:33 Patient moved to 12 sls1 04:34 Pacheco Burger DO is Attending Physician. cs11 04:34 Patient visited by Pacheco Burger DO. cs11 04:39 Inessa Tabares,RN is Primary Nurse. cf2 04:39 Patient visited by Inessa Tabares,BRYAN. cf2 04:41 Patient visited by Inessa Tabares,BRYAN. cf2 04:42 The patient / caregiver is instructed regarding the plan of care and ED course. Patient cf2 has correct armband on for positive identification. Placed in gown. Bed in low position. Call light in reach. Side rails up X 1. Side rails up X2. Property :Personal belongings accompany Pt. Door closed. Noise minimized. Visitors limited. Lights dimmed. Moved to private room. Verbal reassurance given. Warm blanket given. Pillow given. Head of bed elevated. Diet: Patient is NPO. 04:42 No procedures done that require assistance. cf2 04:55 Lipase Sent. cf2 04:55 Amylase Sent. cf2 04:55 Liver Profile Sent. cf2 04:55 MED Profile Sent. cf2 04:55 CBC with Diff Sent. cf2 04:55 Urine Culture Sent. cf2 04:57 Patient visited by Inessa Tabares RN. cf2 04:59 Patient visited by Inessa Tabares RN. cf2 05:17 Patient visited by Inessa Tabares RN. cf2 05:34 CT ABD & PELVIS: No Contrast Returned. EDMS 05:35 [facility] Payment Agreement was scanned into [employer] and attached to record. hs2 05:55 Patient visited by Inessa Tabares RN. cf2 06:16 Patient visited by Inessa Tabares RN. cf2 06:16 Inserted saline lock: 20 gauge in right antecubital area and blood collected. The cf2 patient tolerated the procedure well. 06:36 Patient moved to OBSERVATION cs11 06:59 Attending Physician role handed off by Pacheco Burger DO sd1 06:59 Ashley Anne MD is Attending Physician. sd1 07:00 Patient visited by Inessa Tabares RN. cf2 07:06 Patient visited by Inessa Tabares RN. cf2 07:27 Patient visited by Bunny Vasquez, BRYAN. mlb1 08:45 Patient visited by Bunny Vasquez, BRYAN. mlb1 09:41 Patient visited by Bunny Vasquez, BRYAN. mlb1 09:55 Urinalysis Sent. mlb1 10:38 Patient visited by Bunny Vasquez, BRYAN. mlb1 12:19 Patient visited by Bunny Vasquez, RN. mlb1 13:17 Patient visited by Bunny Vasquez, RN. mlb1 15:10 Patient visited by Bunny Vasquez, BRYAN. mlb1 16:12 Patient visited by Bunny Vasquez, BRYAN. mlb1 17:11 Patient visited by Bunny Vasquez, BRYAN. mlb1 17:50 Patient visited by Bunny Vasquez, RN. mlb1 06/11 09:59 T-Sheet-- Draft Copy was scanned into [employer] and attached to record. gb Administered Medications: Discontinued: NS 0.9% 1000 ml IV at bolus once Discontinued: Metoclopramide 10 mg IV at 40 mg/hr once over 15 mins 06/10 05:05 Drug: NS 0.9% 1000 ml [sodium chloride 0.9 % intravenous solution] Route: IV; Rate: cf2 bolus; Site: left antecubital; 05:05 Drug: Metoclopramide 10 mg [metoclopramide 5 mg/mL injection solution] Route: IV; Rate: cf2 40 mg/hr; Infused Over: 15 mins; Site: left antecubital; 05:05 Drug: Dilaudid - HYDROmorphone 0.5 mg [hydromorphone 1 mg/mL injection syringe (0.5 cf2 mL)] Route: IVP; Site: left antecubital; 07:07 Follow up: Response: No significant change. cf2 06:00 Drug: Dilaudid - HYDROmorphone 0.5 mg [hydromorphone 1 mg/mL injection syringe (0.5 cf2 mL)] Route: IVP; Site: left antecubital; 07:00 Follow up: Response: No Adverse Reaction cf2 06:12 Drug: NS 0.9% 1000 ml [sodium chloride 0.9 % intravenous solution] Route: IV; Rate: cf2 bolus; Site: left antecubital; 07:00 Follow up: Response: No Adverse Reaction cf2 08:44 Drug: D5-1/2 NS with KCl 1000 ml [potassium chloride 20 mEq/L in dextrose 5 %-0.45 % mlb1 sodium chloride IV] {Co-Signature: hs1 (Lulu Arnold RN).} Route: IV; Rate: 100 mL/hr; Site: right antecubital; 18:18 Follow up: IV Status: Completed infusion mlb1 09:47 Drug: Dilaudid - HYDROmorphone 0.5 mg [hydromorphone 1 mg/mL injection syringe (0.5 mlb1 mL)] Route: IVP; Site: right antecubital; 10:37 Follow up: BP 115 / 70; Pulse 74 bpm; Resp 16 bpm; Temp 100.3 Oral; Pulse Ox 93% RA; mlb1 Pain 05/27 Adult; Response: Pain is decreased 13:29 Drug: Acetaminophen 650 mg [acetaminophen 325 mg tablet (2 tabs)] Route: PO; mlb1 15:10 Follow up: Temp 99.8 Oral; Response: Temperature is decreased mlb1 16:40 Drug: Requip 0.5 mg Route: PO; mlb1 17:49 Drug: Acetaminophen 650 mg [acetaminophen 325 mg tablet (2 tabs)] Route: PO; mlb1 18:15 Drug: D5-1/2 NS with KCl 1000 ml [potassium chloride 20 mEq/L in dextrose 5 %-0.45 % mlb1 sodium chloride IV] {Co-Signature: ck1 (Shira Santiago RN).} Route: IV; Rate: 100 mL/hr; Site: right antecubital; Order Results: Lab Order: Urinalysis; SPEC'M 06/10/16 09:53 Test: APPEARANCE, URINE; Value: HAZY; Range: CLEAR; Status: F Test: COLOR, URINE; Value: YELLOW; Range: YELLOW; Status: F Test: PH,URINE; Value: 5.0; Range: 5.0-9.0; Units: UNITS; Status: F Test: SPECIFIC GRAVITY URINE AUTO; Value: 1.024; Range: 1.002-1.035; Status: F Test: PROTEIN, URINE AUTO; Value: 1+; Range: NEGATIVE; Abnormal: Above high normal; Units: mg/dL; Status: F Test: GLUCOSE, URINE (UA) AUTO; Value: NEGATIVE; Range: NEGATIVE; Units: mg/dL; Status: F Test: KETONE, URINE AUTO; Value: 2+; Range: NEGATIVE; Abnormal: Above high normal; Units: mg/dL; Status: F Test: UROBILINOGEN, URINE AUTO; Value: 2.0; Range: 0.0-2.0; Abnormal: Above high normal; Units: mg/dL; Status: F Test: BILIRUBIN, URINE AUTO; Value: NEGATIVE; Range: NEGATIVE; Status: F Test: NITRITE, URINE AUTO; Value: NEGATIVE; Range: NEGATIVE; Status: F Test: LEUKOCYTE ESTERASE, URINE AUTO; Value: NEGATIVE; Range: NEGATIVE; Status: F Test: BLOOD, URINE BLOOD; Value: 2+; Range: NEGATIVE; Abnormal: Above high normal; Status: F Test: WBC, URINE AUTO; Value: 3; Range: 0-3; Units: /HPF; Status: F Test: RBC, URINE AUTO; Value: 3; Range: 0-3; Units: /HPF; Status: F Test: BACTERIA, URINE AUTO; Value: 1+; Range: NEGATIVE; Abnormal: Above high normal; Status: F Test: SQUAMOUS EPITHELIAL CELL UR AU; Value: 1; Range: 0-6; Units: /HPF; Status: F Test: MUCUS, URINE; Value: SMALL; Range: NEGATIVE; Status: F Test: HYALINE CAST, URINE AUTO; Value: 0; Range: 0-1; Units: /LPF; Status: F Lab Order: Urine Culture; SPEC'M 06/10/16 04:51 Test: URINE CULTURE; Value: <EXTERNAL COMMENT eCWMed> FULL REPORT IN LAB NOTES (eCW and [employer]).; Status: F Test: URINE CULTURE; Value: URINE CULTURE RESULT NO GROWTH; Status: F Lab Order: CBC with Diff; SPEC'M 06/10/16 04:51 Test: WHITE BLOOD COUNT; Value: 12.2; Range: 4.0-10.0; Abnormal: Above high normal; Units: K/mm3; Status: F Test: RED BLOOD COUNT; Value: 5.24; Range: 4.00-5.40; Units: M/mm3; Status: F Test: HEMOGLOBIN; Value: 15.4; Range: 12.0-16.0; Units: g/dl; Status: F Test: HEMATOCRIT; Value: 45.5; Range: 36.0-47.0; Units: %; Status: F Test: MEAN CORPUSCULAR VOLUME; Value: 86.9; Range: 80.0-96.0; Units: fl; Status: F Test: MEAN CORPUSCULAR HEMOGLOBIN; Value: 29.5; Range: 27.0-33.0; Units: pg; Status: F Test: MEAN CORPUSCULAR HGB CONC; Value: 33.9; Range: 32.0-36.5; Units: g/dl; Status: F Test: RED CELL DISTRIBUTION WIDTH; Value: 12.5; Range: 11.5-14.5; Units: %; Status: F Test: PLATELET COUNT, AUTOMATED; Value: 191; Range: 150-450; Units: k/mm3; Status: F Test: NEUTROPHILS %; Value: 89.2; Range: 36.0-66.0; Abnormal: Above high normal; Units: %; Status: F Test: LYMPH %; Value: 6.5; Range: 24.0-44.0; Abnormal: Below low normal; Units: %; Status: F Test: MONO %; Value: 2.9; Range: 0.0-5.0; Units: %; Status: F Test: EOS %; Value: 0.9; Range: 0.0-3.0; Units: %; Status: F Test: BASO %; Value: 0.0; Range: 0.0-1.0; Units: %; Status: F Test: LARGE UNSTAINED CELL %; Value: 0.5; Range: 0.0-4.0; Units: %; Status: F Test: NEUTROPHILS #; Value: 10.9; Range: 1.8-7.7; Abnormal: Above high normal; Units: K/mm3; Status: F Test: LYMPH #; Value: 0.8; Range: 1.5-4.5; Abnormal: Below low normal; Units: K/mm3; Status: F Test: MONO #; Value: 0.4; Range: 0.0-0.8; Units: K/mm3; Status: F Test: EOS #; Value: 0.1; Range: 0.0-0.50; Units: K/mm3; Status: F Test: BASO #; Value: 0.0; Range: 0.0-0.2; Units: K/mm3; Status: F Test: LARGE UNSTAINED CELL #; Value: 0.1; Range: 0.0-0.4; Units: K/mm3; Status: F Lab Order: MED Profile; SPEC'M 06/10/16 04:51 Test: GLUCOSE, FASTING; Value: 107; Range: 70-105; Abnormal: Above high normal; Units: MG/DL; Status: F Test: BLOOD UREA NITROGEN; Value: 19; Range: 7-18; Abnormal: Above high normal; Units: MG/DL; Status: F Test: CREATININE FOR GFR; Value: 0.70; Range: 0.55-1.02; Units: MG/DL; Status: F Test: GLOMERULAR FILTRATION RATE; Value: > 60.0; Range: >51; Status: F Test: SODIUM LEVEL; Value: 144; Range: 136-145; Units: MEQ/L; Status: F Test: POTASSIUM SERUM; Value: 3.6; Range: 3.5-5.1; Units: MEQ/L; Status: F Test: CHLORIDE LEVEL; Value: 108; Range: 98-107; Abnormal: Above high normal; Units: MEQ/L; Status: F Test: CARBON DIOXIDE LEVEL; Value: 25; Range: 21-32; Units: MEQ/L; Status: F Test: ANION GAP; Value: 11; Range: 8-16; Units: MEQ/L; Status: F Test: CALCIUM LEVEL; Value: 9.4; Range: 8.5-10.1; Units: MG/DL; Status: F Test Note: ; Units are mL/min/1.73 m2 Chronic Kidney Disease Staging per NKF: Stage I & II GFR >=60 Normal to Mildly Decreased Stage III GFR 30-59 Moderately Decreased Stage IV GFR 15-29 Severely Decreased Stage V GFR <15 Very Little GFR Left ESRD GFR <15 [address] Lab Order: Liver Profile; SPEC'M 06/10/16 04:51 Test: AST/SGOT; Value: 53; Range: 15-37; Abnormal: Above high normal; Units: U/L; Status: F Test: ALT/SGPT; Value: 170; Range: 12-78; Abnormal: Above high normal; Units: U/L; Status: F Test: ALKALINE PHOSPHATASE; Value: 122; Range: 45-117; Abnormal: Above high normal; Units: U/L; Status: F Test: BILIRUBIN,TOTAL; Value: 1.1; Range: 0.2-1.0; Abnormal: Above high normal; Units: MG/DL; Status: F Test: BILIRUBIN,DIRECT; Value: 0.4; Range: 0.0-0.2; Abnormal: Above high normal; Units: MG/DL; Status: F Test: TOTAL PROTEIN; Value: 6.9; Range: 6.4-8.2; Units: GM/DL; Status: F Test: ALBUMIN; Value: 3.7; Range: 3.2-5.2; Units: GM/DL; Status: F Test: ALBUMIN/GLOBULIN RATIO; Value: 1.16; Range: 1.00-1.93; Status: F Lab Order: Amylase; SPEC'M 06/10/16 04:51 Test: AMYLASE; Value: 383; Range: 25-115; Abnormal: Above high normal; Units: U/L; Status: F Lab Order: Lipase; SPEC'M 06/10/16 04:51 Test: LIPASE; Value: 1000; Range: 73-393; Abnormal: Above high normal; Units: U/L; Status: F Radiology Order: CT ABD & PELVIS: No Contrast Test: CT ABD & PELVIS: No Contrast REASON FOR EXAMINATION: Renal colic; ; CLINICAL HISTORY: Abdominal pain.; TECHNIQUE: Multiple axial, sagittal and coronal CT images were obtained through the abdomen and pelvi; s without administration of oral or IV contrast material.; COMMENTS:; Surgical changes of the stomach.; Mild fullness of the left collecting system.; 3 mm calculus in the bladder.; Right renal simple cyst.; The liver is mildly enlarged without mass or defect. There is no intra or extrahepatic biliary ductal; dilatation. The spleen is normal. The gallbladder is within normal limits. The pancreas is of normal; contour and attenuation characteristics. There is no evidence of adrenal mass.; The kidneys are normal in size, shape and configuration. No renal or ureteral calculi are identified.; There is no right hydroureter or hydronephrosis.; There is no evidence for appendicitis. There is no bowel wall thickening. No evidence for small or la; rge bowel obstruction. There is no evidence of abdominal ascites or lymphadenopathy.; There is no evidence of intrinsic or extrinsic bladder mass. There is no pelvic ascites or lymphadeno; chase.; Prior hysterectomy. Mild diffuse thickening of the wall of the bladder.; Images of the lung bases show no evidence of pleural or parenchymal mass. There are no pleural effusi; ons.; The bony structures are free of lytic or blastic lesions. Multilevel degenerative changes are seen in; volving the thoracolumbar spine.; Scattered calcifications are seen involving the aorta and major branches compatible with atherosclero; sis.; IMPRESSION:; Suspected recent passage of calculus from the left collecting system into the bladder. This stone is; noted in the bladder.; Surgical changes of the stomach.; Thank you for your kind referral of this patient.; ; Outcome: 06:16 CT Study completed. cf2 09:54 ER care complete, transfer ordered by Provider. sd1 16:26 ER care complete, transfer ordered by Provider. sd1 18:03 Transferred by EMS ground [facility] ambulance report to accompanying personnel Seven ck1 Jeff Cloth Bleaching Range Operator Chief; Esther Mora. 18:26 Discharge Assessment: Patient awake, alert and oriented x 3. No cognitive and/or mlb1 functional deficits noted. Patient verbalized understanding of disposition instructions. patient administered narcotics - yes. Patient was admitted to the hospital or transferred to another facility. The following High Risk Discharge criteria are identified: None. Transferred to [facility]. Transfer form completed. x-rays sent w/ patient. 18:27 Condition: stable. mlb1 18:29 Patient left the ED. [facility] Signatures: Dispatcher [employer] EDMS Ashley Anne MD MD sd1 Briana Chau, Reg Reg gb Bunny Vasquez RN RN mlb1 Jack,Shira,RN RN ck1 Clotilde Bajwa RN RN sls1 Pacheco Burger, DO DO cs11 Angelique HernandezRN RN js15 Beatriz Huynh, Reg Reg hs2 Inessa TabaresRN RN cf2 Osmel Rosales, Reg Reg pm4 Lulu Arnold RN hs1 Shira Santiago RN ck1 Corrections: (The following items were deleted from the chart) 15:54 04:29 Home Meds: ropinirole oral oral three times a day; js15 ml 16:12 15:54 Home Meds: ropinirole oral 10 mg oral 1 tab Q am 2 tabs Q pm; mlb1 b1 [facility]
--- NOTE | 2016-06-12 19:29 | EDDOCDS ---
Physician Documentation [facility] Name: Laura Bocanegra Age: 55 yrs Sex: Female : 1960 Arrival Date: 06/10/2016 Time: 04:18 Bed OBSERVATION Private MD: Jenifer Sharp A Disposition: 06/10/16 16:26 Transfer ordered to Other. Diagnosis is Acute pancreatitis. - Reason for transfer: Higher level of care. - Accepting physician is Dr. Lawrence. - Condition is Stable. - Problem is new. - Symptoms are unchanged. Historical: - Allergies: No known drug Allergies; - Home Meds: 1. Prilosec 40 mg oral cpDR once daily 2. aspirin 325 mg Oral tab 1 tab once daily 3. ropinirole 1 mg oral tab 1 tab Qam 2 tabs Q pm - PMHx: GERD; restless leg syndrome; - PSHx: gastric sleeve; Hysterectomy; - Social history: Smoking status: Patient states was never smoker of tobacco. No barriers to communication noted, The patient speaks fluent Swedish, Speaks appropriately for age. - Family history: Not pertinent. - : The pt / caregiver states he / she is not on anticoagulants. Home medication list is obtained from the patient. - Exposure Risk Screening:: None identified. Vital Signs: 06/10 04:24 BP 116 / 70; Pulse 75; Resp 20; Temp 98.0(TE); Pulse Ox 95% on R/A; Weight 95.25 kg / js15 209.99 lbs; Height 5 ft. 6 in. (167.64 cm); 07:04 BP 123 / 71; Pulse 80; Resp 16; Temp 98.0; Pulse Ox 100% on R/A; Pain 4/10; cf2 10:37 BP 115 / 70; Pulse 74; Resp 16; Temp 100.3(O); Pulse Ox 93% on R/A; Pain 1/10; mlb1 12:19 Temp 100.4(O); mlb1 13:17 BP 108 / 63; Pulse 82; Resp 16; Temp 100.9(O); Pulse Ox 94% on R/A; Pain 2/10; mlb1 15:10 Temp 99.8(O); mlb1 17:10 BP 125 / 69; Pulse 68; Resp 16; Pulse Ox 96% on R/A; Pain 0/10; mlb1 18:26 BP 153 / 81; Pulse 80; Resp 16; Temp 99.1(O); Pulse Ox 96% on R/A; Pain 5/10; mlb1 04:24 Body Mass Index 33.89 (95.25 kg, 167.64 cm) js15 MDM: 04:36 Urinalysis Ordered. EDMS 04:36 Urine Culture Ordered. EDMS 04:37 CBC with Diff Ordered. EDMS 04:37 MED Profile Ordered. EDMS 04:37 Liver Profile Ordered. EDMS 04:37 Amylase Ordered. EDMS 04:37 Lipase Ordered. EDMS 04:37 CT ABD & PELVIS: No Contrast Ordered. EDMS 04:56 NS 0.9% 1000 ml IV at bolus once ordered. cs11 04:59 Metoclopramide 10 mg IV at 40 mg/hr once over 15 mins ordered. cs11 04:59 Dilaudid - HYDROmorphone 0.5 mg IVP once ordered. cs11 05:20 CBC with Diff Reviewed. cs11 05:34 Financial registration complete. hs2 05:35 [facility] Payment Agreement was scanned into [employer] and attached to record. hs2 05:41 MED Profile Reviewed. cs11 05:41 Liver Profile Reviewed. cs11 05:41 Amylase Reviewed. cs11 05:41 Lipase Reviewed. cs11 05:41 CT ABD & PELVIS: No Contrast Reviewed. cs11 05:46 BED REQUEST+ADM ordered. EDMS 05:53 Dilaudid - HYDROmorphone 0.5 mg IVP once ordered. cs11 06:11 NS 0.9% 1000 ml IV at bolus once ordered. cs11 07:12 D5-1/2 NS with KCl 20 mEq/L 1000 ml IV at 100 mL/hr once ordered. sd1 09:42 Dilaudid - HYDROmorphone 0.5 mg IVP once ordered. sd1 13:23 Acetaminophen Tablet 650 mg PO once ordered. sd1 14:54 Urinalysis Reviewed. sd1 15:21 CBC with Diff Ordered. EDMS 15:22 MED Profile Ordered. EDMS 15:22 Liver Profile Ordered. EDMS 15:22 Lipase Ordered. EDMS 16:04 Requip 0.5 mg PO once ordered. sd1 17:39 Acetaminophen Tablet 650 mg PO once ordered. sd1 18:12 D5-1/2 NS with KCl 20 mEq/L 1000 ml IV at 100 mL/hr once ordered. mlb1 06/11 09:59 T-Sheet-- Draft Copy was scanned into [employer] and attached to record. gb Administered Medications: Discontinued: NS 0.9% 1000 ml IV at bolus once Discontinued: Metoclopramide 10 mg IV at 40 mg/hr once over 15 mins 06/10 05:05 Drug: NS 0.9% 1000 ml [sodium chloride 0.9 % intravenous solution] Route: IV; Rate: cf2 bolus; Site: left antecubital; 05:05 Drug: Metoclopramide 10 mg [metoclopramide 5 mg/mL injection solution] Route: IV; Rate: cf2 40 mg/hr; Infused Over: 15 mins; Site: left antecubital; 05:05 Drug: Dilaudid - HYDROmorphone 0.5 mg [hydromorphone 1 mg/mL injection syringe (0.5 cf2 mL)] Route: IVP; Site: left antecubital; 07:07 Follow up: Response: No significant change. cf2 06:00 Drug: Dilaudid - HYDROmorphone 0.5 mg [hydromorphone 1 mg/mL injection syringe (0.5 cf2 mL)] Route: IVP; Site: left antecubital; 07:00 Follow up: Response: No Adverse Reaction cf2 06:12 Drug: NS 0.9% 1000 ml [sodium chloride 0.9 % intravenous solution] Route: IV; Rate: cf2 bolus; Site: left antecubital; 07:00 Follow up: Response: No Adverse Reaction cf2 08:44 Drug: D5-1/2 NS with KCl 1000 ml [potassium chloride 20 mEq/L in dextrose 5 %-0.45 % mlb1 sodium chloride IV] {Co-Signature: hs1 (Lulu Arnold RN).} Route: IV; Rate: 100 mL/hr; Site: right antecubital; 18:18 Follow up: IV Status: Completed infusion mlb1 09:47 Drug: Dilaudid - HYDROmorphone 0.5 mg [hydromorphone 1 mg/mL injection syringe (0.5 mlb1 mL)] Route: IVP; Site: right antecubital; 10:37 Follow up: BP 115 / 70; Pulse 74 bpm; Resp 16 bpm; Temp 100.3 Oral; Pulse Ox 93% RA; mlb1 Pain /10 Adult; Response: Pain is decreased 13:29 Drug: Acetaminophen 650 mg [acetaminophen 325 mg tablet (2 tabs)] Route: PO; mlb1 15:10 Follow up: Temp 99.8 Oral; Response: Temperature is decreased mlb1 16:40 Drug: Requip 0.5 mg Route: PO; mlb1 17:49 Drug: Acetaminophen 650 mg [acetaminophen 325 mg tablet (2 tabs)] Route: PO; mlb1 18:15 Drug: D5-1/2 NS with KCl 1000 ml [potassium chloride 20 mEq/L in dextrose 5 %-0.45 % mlb1 sodium chloride IV] {Co-Signature: ck1 (Shira Santiago RN).} Route: IV; Rate: 100 mL/hr; Site: right antecubital; Signatures: Dispatcher [employer] EDAshley Garcia MD MD sd1 Briana Chua, Reg Reg gb Bunny Vasquez RN RN mlb1 Pacheco Burger, DO cs11 Angelique HernandezRN RN js15 Beatriz Huynh, Reg Reg hs2 Inessa TabaresRN RN cf2 Lulu Arnold RN hs1 Shira Santiago RN ck1 The chart was reviewed and I authenticate all verbal orders and agree with the evaluation and treatment provided.Corrections: (The following items were deleted from the chart) 15:54 04:29 Home Meds: ropinirole oral oral three times a day; js15 [facility] 16:12 15:54 Home Meds: ropinirole oral 10 mg oral 1 tab Q am 2 tabs Q pm; mlb1 mlb1 Attachments: 05:35 [facility] Payment Agreement hs2 06/11 09:59 T-Sheet-- Draft Copy gb Chart Complete MTDD
== END 2016-06-10 18:29 | disposition short-term general hospital (02) ==
LOC: M ED 04:18
DX: K85.90 Acute pancreatitis without necrosis or infection, unspecified (principal); K21.9 Gastro-esophageal reflux disease without esophagitis; G25.81 Restless legs syndrome; Z98.84 Bariatric surgery status; Z79.82 Long term (current) use of aspirin; Z79.899 Other long term (current) drug therapy
CPT/HCPCS: 36415; 74176; 80048; 80076; 81001; 82150; 83690; 85025; 87086; 99285; J1170; J2765

== ENCOUNTER → 2017-09-09 | Outpatient (CLI) | payer OTHER | LOC: M WUC 08:52 | DX: M25.561 Pain in right knee (principal) | CPT/HCPCS: 73560 ==

== ENCOUNTER → 2017-09-13 | Outpatient (CLI) | payer OTHER | LOC: M WUC 10:43 | DX: R93.41 Abnormal radiologic findings on diagnostic imaging of renal pelvis, ureter, or bladder (principal) | CPT/HCPCS: 74018 ==

== ENCOUNTER → 2019-12-08 | Outpatient (CLI) | payer OTHER ==
[~2019-12-08] MED LIST: ASPI-1 PO; EXCETAB33 PO; EXCETAB80 PO; MIRA0.254 PO; OMEP40CA97 PO; PANT40TA29 PO; PRAM1TAB7 PO; ROPI0.5T3 PO; ROPI1TAB3 PO; VITMTA PO
== END ==
LOC: M LABSMTC 11:49
PROVIDERS: ATTEND Anesthesiology
DX: Z20.828 Contact with and (suspected) exposure to other viral communicable diseases (principal); Z11.59 Encounter for screening for other viral diseases

== ENCOUNTER 2019-12-13 11:56 | Day surgery (SDC) | payer OTHER ==
[~2019-12-13] VITALS: Ht 167.6 cm; Wt 104.3 kg
[~2019-12-13 11:56] MED LIST changes: +LIDOCAINE 2% 100MG/5ML SDV (FOR ANES.) As Ordered ONE; -PANT40TA29 PO; +PANT40TA3 PO
[2019-12-13] MEDS ORDERED: propofoL 200 MG/20 ML VIAL As Ordered ONE ×2 (12:19→12:55)
[2019-12-13] MEDS ORDERED: fentaNYL 100 MCG/2 ML INJECTION (J3010) As Ordered ONE (12:47)
== END 2019-12-13 15:40 | disposition home or self-care (01) ==
LOC: M OPP 11:56
PROVIDERS: ATTEND Surgery
DX: K21.9 Gastro-esophageal reflux disease without esophagitis (principal); K44.9 Diaphragmatic hernia without obstruction or gangrene; G43.909 Migraine, unspecified, not intractable, without status migrainosus; G47.30 Sleep apnea, unspecified; Z98.84 Bariatric surgery status; Z79.899 Other long term (current) drug therapy; Z12.11 Encounter for screening for malignant neoplasm of colon
CPT/HCPCS: 43235; 45378; J3010

== ENCOUNTER → 2020-08-07 | Outpatient (CLI) | payer OTHER ==
[~2020-08-07] MED LIST changes: -LIDOCAINE 2% 100MG/5ML SDV (FOR ANES.) As Ordered ONE; +PANT40TA29 PO; -PANT40TA3 PO
--- NOTE | 2020-08-07 09:57 | REP ---
INDICATION: PAIN AFTER FALL COMPARISON: None. TECHNIQUE: There are five views. FINDINGS: There is no fracture or dislocation. There is no hemarthrosis or effusion. Mineralization and joint spaces are unremarkable. There is a faintly visible 5 mm round subcortical lucency along the weight bearing surface of the medial femoral condyle, nonspecific, bone cyst versus osteochondrosis dissecans. There are no calcifications or foreign bodies. IMPRESSION: No fracture, dislocation, humeral arthrosis or effusion. Nonspecific 5 mm subcortical lucency along the weight-bearing surface of the medial femoral condyle. This is nonspecific and could represent a small bone cyst or possibly osteochondrosis dissecans. Depending on symptoms follow-up MRI might be considered. <Electronically signed by Ugo Buchanan > 08/07/20 0945
== END ==
LOC: M WUC 08:58
PROVIDERS: ATTEND Physician Assistant
DX: M25.561 Pain in right knee (principal)

== ENCOUNTER → 2022-01-02 | Outpatient (CLI) | payer OTHER ==
[~2022-01-02] MED LIST changes: +EXCETAB32 PO; -EXCETAB33 PO; +FAMOTIDINE; +LISI10TA22; +OMEP40CA4 PO; -OMEP40CA97 PO
== END ==
LOC: M LABSMTC 09:22
PROVIDERS: ATTEND Anesthesiology
DX: Z01.812 Encounter for preprocedural laboratory examination (principal); Z11.52 Encounter for screening for COVID-19

== ENCOUNTER → 2022-02-03 | Outpatient (CLI) | payer OTHER ==
[~2022-02-03] MED LIST changes: +FAMO10TA50 PO; -LISI10TA22; +LISI10TA22 PO
== END ==
LOC: M LABSMTC 10:28
PROVIDERS: ATTEND Anesthesiology
DX: Z01.818 Encounter for other preprocedural examination (principal); Z11.52 Encounter for screening for COVID-19

== ENCOUNTER 2022-02-06 06:47 | Day surgery (SDC) | payer OTHER ==
[~2022-02-06] VITALS: Ht 167.6 cm; Wt 110.7 kg
[~2022-02-06 06:47] MED LIST changes: +NS 1,000 ML IV ONE
[2022-02-06] MEDS ORDERED: propofoL 200 MG/20 ML VIAL As Ordered ONE ×2 (07:41→08:08)
[2022-02-06] MEDS ORDERED: LIDOCAINE 2% 100MG/5ML SDV (FOR ANES.) As Ordered ONE (07:41)
[2022-02-06] MEDS ORDERED: GLYCOPYRROLATE INJ 0.2 MG/ML 2 ML VIAL As Ordered ONE (07:41)
[2022-02-06 08:07] VITALS: BP 124/77
== END 2022-02-06 08:20 | disposition home or self-care (01) ==
LOC: M OPP 06:47
PROVIDERS: ATTEND Surgery
DX: K21.00 Gastro-esophageal reflux disease with esophagitis, without bleeding (principal); K44.9 Diaphragmatic hernia without obstruction or gangrene; Z98.84 Bariatric surgery status; Z79.1 Long term (current) use of non-steroidal anti-inflammatories (NSAID); Z79.899 Other long term (current) drug therapy; Z99.89 Dependence on other enabling machines and devices; G47.30 Sleep apnea, unspecified; I10 Essential (primary) hypertension; G43.909 Migraine, unspecified, not intractable, without status migrainosus; G25.81 Restless legs syndrome

== ENCOUNTER → 2022-11-20 | Outpatient (CLI) | payer OTHER ==
[~2022-11-20] MED LIST changes: -NS 1,000 ML IV ONE
[2022-11-20 11:19] LABS: ALBUMIN 3.3 G/DL (3.2-5.2); BLOOD UREA NITROGEN 14 MG/DL (9-23); CALCIUM LEVEL 8.9 MG/DL (8.3-10.6); CARBON DIOXIDE LEVEL 25 MMOL/L (20-31); CHLORIDE LEVEL 110 MMOL/L (98-107); CREATININE FOR GFR 0.63 MG/DL (0.55-1.30); GLOMERULAR FILTRATION RATE > 60.0 (>45); GLUCOSE, FASTING 92 MG/DL (74-106); PHOSPHORUS LEVEL 2.9 MG/DL (2.4-5.1); POTASSIUM SERUM 3.9 MMOL/L (3.5-5.1); SODIUM LEVEL 143 MMOL/L (136-145)
== END ==
LOC: M WUC 08:35
PROVIDERS: ATTEND Internal Medicine Cardiovascular Disease
DX: R60.0 Localized edema (principal); I27.23 Pulmonary hypertension due to lung diseases and hypoxia; I10 Essential (primary) hypertension; I49.3 Ventricular premature depolarization

== ENCOUNTER → 2023-06-22 | Outpatient (CLI) | payer OTHER ==
[~2023-06-22] MED LIST changes: -ROPI0.5T3 PO; +ROPI0.5T33 PO; -ROPI1TAB3 PO; +ROPI1TAB73 PO
== END ==
LOC: M PLAIMG 11:11
PROVIDERS: ATTEND Internal Medicine Cardiovascular Disease
DX: I27.23 Pulmonary hypertension due to lung diseases and hypoxia (principal); R94.31 Abnormal electrocardiogram [ECG] [EKG]; I49.3 Ventricular premature depolarization

== ENCOUNTER → 2023-11-30 | Outpatient (CLI) | payer OTHER | LOC: M EKG 09:08 | PROVIDERS: ATTEND Internal Medicine Cardiovascular Disease | DX: I49.3 Ventricular premature depolarization (principal); I44.0 Atrioventricular block, first degree ==

== ENCOUNTER → 2024-01-07 | Outpatient (REF) | payer OTHER | LOC: M LAB REF 16:52 | PROVIDERS: ATTEND Nurse Practitioner Family | DX: R35.0 Frequency of micturition (principal); R30.0 Dysuria ==

== ENCOUNTER → 2024-03-08 | Outpatient (CLI) | payer OTHER | LOC: M CARPUL 14:28 | PROVIDERS: ATTEND Internal Medicine Cardiovascular Disease | DX: R94.31 Abnormal electrocardiogram [ECG] [EKG] (principal); I49.3 Ventricular premature depolarization; I44.0 Atrioventricular block, first degree ==

== ENCOUNTER → 2025-03-02 | Outpatient (CLI) | payer MEDICARE, OTHER | LOC: M PLAIMG 14:33 | PROVIDERS: ATTEND Nurse Practitioner Family | DX: R10.A2 Flank pain, left side (principal); Z79.899 Other long term (current) drug therapy ==

== ENCOUNTER → 2025-03-07 | Outpatient (CLI) | payer MEDICARE, OTHER ==
[~2025-03-07] MED LIST changes: +ISOVUE-370 76% 100 ML VIAL As Ordered ONE
[2025-03-07 11:56] LABS: BASO # 0.0 10^3/uL (0.0-0.2); BASO % 0.4 % (0.0-1.0); EOS # 0.2 10^3/uL (0.0-0.5); EOS % 3.9 % (0.0-3.0); LYMPH # 1.2 10^3/uL (1.5-5.0); LYMPH % 23.2 % (24.0-44.0); MONO # 0.5 10^3/uL (0.0-0.8); MONO % 10.2 % (2.0-8.0); NEUTROPHILS # 3.2 10^3/uL (1.5-8.5); NEUTROPHILS % 61.9 % (36.0-66.0); PLATELET COUNT, AUTOMATED 186 10^3/uL (150-450)
[2025-03-07 11:57] LABS: APPEARANCE, URINE CLEAR (CLEAR); BACTERIA, URINE AUTO NEGATIVE (NEGATIVE); BILIRUBIN, URINE AUTO NEGATIVE (NEGATIVE); BLOOD, URINE BLOOD NEGATIVE (NEGATIVE); GLUCOSE, URINE (UA) AUTO NEGATIVE (NEGATIVE); KETONE, URINE AUTO NEGATIVE (NEGATIVE); LEUKOCYTE ESTERASE, URINE AUTO NEGATIVE (NEGATIVE); NITRITE, URINE AUTO NEGATIVE (NEGATIVE); PROTEIN, URINE AUTO NEGATIVE (NEGATIVE); RBC, URINE AUTO 1 /HPF (0-3); SPECIFIC GRAVITY URINE AUTO 1.006 (1.002-1.035); SQUAMOUS EPITHELIAL CELL UR AU 1 /HPF (0-6); UROBILINOGEN, URINE AUTO 0.2 mg/dL (0.0-2.0); WBC, URINE AUTO 0 /HPF (0-3)
[2025-03-07 12:26] LABS: CREATININE FOR GFR 0.86 MG/DL (0.55-1.30); GLOMERULAR FILTRATION RATE 74.9 (>45)
[2025-03-07 12:29] LABS: ALT/SGPT 14.0 U/L (7.0-40); AST/SGOT 14.0 U/L (<34); CALCIUM LEVEL 9.7 MG/DL (8.3-10.6); CARBON DIOXIDE LEVEL 25.0 MMOL/L (20-31); CHLORIDE LEVEL 106.0 MMOL/L (98-107); CREATININE FOR GFR 0.85 MG/DL (0.55-1.30); GLOMERULAR FILTRATION RATE 76.0 (>45); POTASSIUM SERUM 4.2 MMOL/L (3.5-5.1); SODIUM LEVEL 141.0 MMOL/L (136-145)
== END ==
LOC: M RAD 10:56
PROVIDERS: ATTEND Nurse Practitioner Family
DX: Z01.812 Encounter for preprocedural laboratory examination (principal); R10.A2 Flank pain, left side; Z90.49 Acquired absence of other specified parts of digestive tract; K44.9 Diaphragmatic hernia without obstruction or gangrene
CPT/HCPCS: 36415; 74178; 80053; 81001; 82150; 82565; 83690; 84520; 85025; Q9967

== ENCOUNTER → 2025-03-29 | Outpatient (REF) | payer MEDICARE, OTHER ==
[~2025-03-29] MED LIST changes: -ISOVUE-370 76% 100 ML VIAL As Ordered ONE
[2025-03-29 17:40] LABS: APPEARANCE, URINE HAZY (CLEAR); BACTERIA, URINE AUTO NEGATIVE (NEGATIVE); BILIRUBIN, URINE AUTO NEGATIVE (NEGATIVE); BLOOD, URINE BLOOD NEGATIVE (NEGATIVE); GLUCOSE, URINE (UA) AUTO NEGATIVE (NEGATIVE); KETONE, URINE AUTO NEGATIVE (NEGATIVE); LEUKOCYTE ESTERASE, URINE AUTO NEGATIVE (NEGATIVE); MUCUS, URINE LARGE (NEGATIVE); NITRITE, URINE AUTO NEGATIVE (NEGATIVE); PROTEIN, URINE AUTO 1+ mg/dL (NEGATIVE); RBC, URINE AUTO 2 /HPF (0-3); SPECIFIC GRAVITY URINE AUTO 1.033 (1.002-1.035); SQUAMOUS EPITHELIAL CELL UR AU 5 /HPF (0-6); UROBILINOGEN, URINE AUTO 4.0 mg/dL (0.0-2.0); WBC, URINE AUTO 0 /HPF (0-3)
== END ==
LOC: M SMT 16:45
PROVIDERS: ATTEND Urology
DX: R31.29 Other microscopic hematuria (principal)